=== PATIENT | female | born 1935 | race Caucasian/White ===

== ENCOUNTER → 2017-11-19 | Outpatient (CLI) | payer MEDICARE, OTHER ==
[~2017-11-19] MED LIST: ASC500 PO; ATR10 PO; CEP500 PO; FISH OIL 500 MG1 CAP PO; LEV112 PO; LISI-368 PO; MULT-820 PO; OCCUVITE PO; [UNRECOGNIZED DRUG - CODE] PO
--- NOTE | 2017-11-22 09:57 | RADIOLOGY IMAGING REPORT ---
FACILITY: [facility] PATIENT NAME: ALLAN KYLE : [id number] MR: [id number] V: [id number] EXAM DATE: ORDERING PHYSICIAN: JUANCARLOS SHOOK TECHNOLOGIST: Ching Barrett PROCEDURE:BILATERAL DIGITAL SCREENING MAMMOGRAM WITH CAD ASSISTED INTERPRETATION AND 3D BREAST TOMOSYNTHESIS. COMPARISON:Prior mammograms dated 10/21/16, 10/11/15, 09/25/14, 09/22/13, 09/20/12 and 09/16/11. INDICATIONS:SCREENING FINDINGS: A small amount of fibroglandular tissue is seen throughout the breasts. The parenchymal pattern has remained stable when allowing for difference in mammographic technique and patient positioning. There is no evidence of malignant appearing mass, malignant appearing calcification or other secondary sign of malignancy in either breast. DIAGNOSTIC CATEGORY 1--NEGATIVE. RECOMMENDATIONS: ROUTINE MAMMOGRAM AND CLINICAL EVALUATION. IMPRESSION: Bi-RADS 1: No significant abnormality is seen. Images were reviewed with R2CAD and 3D breast tomosynthesis. Dictated by: Lizeth Paul M.D. on 11/19/2017 at 10:55 Transcribed by: TORRES on 11/21/2017 at 19:31 Approved by: Lizeth Paul M.D. on 11/22/2017 at 9:56 [facility]
== END ==
LOC: MAMO 00:55
PROVIDERS: ATTEND Family Medicine
DX: Z12.31 Encounter for screening mammogram for malignant neoplasm of breast (principal)
CPT/HCPCS: 77063; 77067